=== PATIENT | male | born 1995 | race Caucasian/White ===

== ENCOUNTER 2016-12-27 02:10 | Emergency (ER) | payer BC, OTHER ==
[~2016-12-27] VITALS: Ht 172.7 cm; Wt 105.9 kg
[2016-12-27 02:20] VITALS: Ht 172.7 cm; Wt 105.9 kg
[2016-12-27] MEDS ORDERED: LORAZEPAM 1 MG TAB PO ONE (03:00)
--- NOTE | 2016-12-27 03:18 | ERD ---
ER Documentation Chief Complaint Chief Complaint c/o anxiety x 1 hour. hx of anxiety HPI 21-year-old male who presents emergency department for anxiety that started an hour ago. Mother and his aunt stated that he was just hanging out with friends when he had an anxiety attack. He also stated that patient had history of anxiety. Denies headache, dizziness, blurry vision, head injury, neck pain, throat pain, throat tightness, difficulty swallowing, shoulder pain, chest pain, coughing, difficulty breathing when lying flat, back pain, abdominal pain, nausea, vomiting, constipation, diarrhea, urinary symptoms, loss of bowel and bladder control, changes in bowel and bladder habits, difficulty walking, recent long travel, recent antibiotic use in the last 3 months, recent exposure to any illness, fever, chills, numbness or tingling sensation. No known drug allergies. Past medical history of anxiety. Family history of heart attack or stroke before the age of 50. No surgical history. Medication: Takes Marichuy root. Social: Works at a [employer]. Occasionally smokes cigarettes. Denies use of alcoholic beverages, use of illegal drugs. ROS All systems reviewed and are negative except as per history of present illness. Medications Home Meds Active Scripts Lorazepam* (Lorazepam*) 1 Mg Tablet, 1 MG PO Q8 Y for ANXIETY, #10 TAB Prov:LINBANGWYNAR F 12/27/16 Hydroxyzine Hcl* (Hydroxyzine Hcl*) 50 Mg Tablet, 50 MG PO Q6 Y for ANXIETY, # 20 TAB Prov:PASILABANGWYNAR F 12/27/16 Allergies Allergies: Coded Allergies: No Known Allergy (Unverified , 08/15/13) PMhx/Soc Medical and Surgical Hx: pt denies Surgical Hx Hx Alcohol Use: No Hx Substance Use: No Hx Tobacco Use: Yes Smoking Status: Current every day smoker Physical Exam Vitals Vital Signs Date Time Temp Pulse Resp B/P Pulse Ox O2 Delivery O2 Flow Rate FiO2 12/27/16 02:20 98.8 99 20 134/83 99 Physical Exam Const: [] Head: Atraumatic Eyes: Normal Conjunctiva ENT: Normal External Ears, Nose and Mouth. Neck: Full range of motion..~ No meningismus. Resp: Clear to auscultation bilaterally Cardio: Regular rate and rhythm, no murmurs Abd: Soft, non tender, non distended. Normal bowel sounds Skin: No petechiae or rashes Back: No midline or flank tenderness Ext: No cyanosis, or edema Neur: Awake and alert Psych: Normal Mood and Affect Results 24 hrs Current Medications Medications (Trade) Dose Ordered Sig/Suhki Route PRN Reason Start Time Stop Time Status Last Admin Dose Admin Lorazepam (Ativan) 1 mg ONCE ONCE PO 12/27/16 03:00 12/27/16 03:01 DC 12/27/16 03:06 Procedures/MDM 21-year-old male who presents emergency department for anxiety that started an hour ago. Mother and his aunt stated that he was just hanging out with friends when he had an anxiety attack. He also stated that patient had history of anxiety. Denies headache, dizziness, blurry vision, head injury, neck pain, throat pain, throat tightness, difficulty swallowing, shoulder pain, chest pain, coughing, difficulty breathing when lying flat, back pain, abdominal pain, nausea, vomiting, constipation, diarrhea, urinary symptoms, loss of bowel and bladder control, changes in bowel and bladder habits, difficulty walking, recent long travel, recent antibiotic use in the last 3 months, recent exposure to any illness, fever, chills, numbness or tingling sensation. No known drug allergies. Past medical history of anxiety. Family history of heart attack or stroke before the age of 50. No surgical history. Medication: Takes Marichuy root. Social: Works at a [employer]. Occasionally smokes cigarettes. Denies use of alcoholic beverages, use of illegal drugs. Physical exam: Unremarkable. Disease process was explained to the patient and family member. They all verbalized understanding and agreed with the diagnostic test, treatment, plan of care, follow-up care. EKG: Normal sinus rhythm with a ventricular rate of 74 bpm. No STEMI. No evidence of acute myocardial infarction. No evidence of ischemia. Read by supervising emergency room physician, Dr. Mert Khoury. Treatment: Ativan p.o. Reevaluation: Denies headache, dizziness, blurred vision, neck pain, throat pain , difficulty swallowing, throat tightness, chest pain, chest tightness, abdominal pain, back pain, nausea, vomiting. No episode of emesis here in the emergency department. No clammy skin. There is no abdominal tenderness. Lung sounds are clear to auscultation. No neurological deficits. No neurovascular deficits. Stated that he feels much better this time and is ready to go home. Differential diagnosis: Acute myocardial infarction versus acute coronary syndrome versus anxiety versus panic attack versus stress Final diagnosis: Anxiety. Prescription: Hydroxyzine. Ativan. Follow-up with primary care physician the next 24-48 hours. Come back here in the emergency department for any new symptoms or any worsening of symptoms. All questions and concerns are answered. Patient and family member verbalized understanding and agreed with the plan of care. Hemodynamically stable on discharge. Departure Diagnosis: Primary Impression: Anxiety Condition: Stable Additional Instructions: Follow-up with primary care physician the next 24-48 hours. Come back here in the emergency department for any new symptoms or any worsening of symptoms. All questions and concerns are answered. Patient and family member verbalized understanding and agreed with the plan of care. CARLITOS RADER Dec 27, 2016 03:18
[2016-12-27] MEDS ORDERED: LORA1TAB PO (03:43)
[2016-12-27] MEDS ORDERED: HYDR-3012 PO (03:43)
== END 2016-12-27 03:49 | disposition home or self-care (01) ==
LOC: FTE 02:10
DX: F41.9 Anxiety disorder, unspecified (principal); F17.210 Nicotine dependence, cigarettes, uncomplicated; R00.2 Palpitations
CPT/HCPCS: 93005; Z7502; Z7610